=== PATIENT | male | born 1975 | race Caucasian/White ===

== ENCOUNTER 2018-07-05 01:13 | Emergency (ER) | payer OTHER ==
[2018-07-05 01:38] VITALS: RESP 18
--- NOTE | 2018-07-05 02:45 | ED PDOC ---
HPI: Dental Pain/Injury Time Seen by Provider: 07/05/18 01:51 Chief Complaint (Nursing): Dental Pain Chief Complaint (Provider): Dental pain History Per: Patient History/Exam Limitations: no limitations Onset/Duration Of Symptoms: Days (x3) Current Symptoms Are (Timing): Still Present Additional Complaint(s): Quentin Love is a 42 year old male, with a past medical history of ADHD and HIV, who presents to the emergency department for evaluation of a right lower toothache radiating into the jaw for the last x3 days. Patient states pain worsened today and interfered with his ability to sleep, prompting ED visit. Patient notes he has an appointment tomorrow to get the affected molar extracted. He reports no relief with taking a tab of Percocet at 20:30 and a dditional tab at 23:30, patient also took Tramadol 50mg tab at 17:30. He denies any other medical complaints. Patient notes he was told the tooth is pressing on the nerve. Patient has been compliant with his HIV regimen and states his levels are undetectable. PMD: None provided. Past Medical History Reviewed: Historical Data, Nursing Documentation, Vital Signs Vital Signs: Last Vital Signs Temp 98.8 F 07/05/18 01:34 Pulse 100 H 07/05/18 01:34 Resp 18 07/05/18 01:34 BP 136/75 07/05/18 01:34 Pulse Ox 98 07/05/18 01:34 - Medical History PMH: HIV (on meds) Other PMH: ADHD - Surgical History Surgical History: No Surg Hx - Family History Family History: States: Unknown Family Hx - Social History Current smoker - smoking cessation education provided: Yes (heavy smoker >10 cigarettes daily) Alcohol: None Drugs: Denies - Allergies Allergies/Adverse Reactions: Allergies Allergy/AdvReac Type Severity Reaction Status Date / Time No Known Allergies Allergy Verified 07/05/18 01:33 Review of Systems ROS Statement: Except As Marked, All Systems Reviewed And Found Negative ENT: Positive for: Mouth Pain (right lower toothache and jaw pain) Physical Exam - Reviewed Nursing Documentation Reviewed: Yes Vital Signs Reviewed: Yes - Physical Exam Comments: GENERAL APPEARANCE: Patient is awake, alert, oriented x 3, in no acute distress. Resting comfortably. SKIN: Warm, dry; (-) cyanosis. LUNGS: clear to auscultation bilaterally (-) rales (-) rhonchi (-) wheezing. Speaking in full sentences, respirations even and nonlabored. HEART: (-) irregularity ENMT: Full ROM of mandible. (-) sinus swelling or tenderness. (-) tooth t enderness to percussion. (-) gingival swelling or fluctuance. Pharynx: clear, uvula midline (-) tongue elevation, (-) exudate. Airway patent: (-) stridor. (- ) Submandibular or submental neck swelling (-) pseudomembranes NECK: Supple, FROM (-) tenderness, (-) crepitus. - ECG O2 Sat by Pulse Oximetry: 98 (RA) Pulse Ox Interpretation: Normal Medical Decision Making Medical Decision Making: Time: 01:50 Initial Impression: Dental and jaw pain Initial Plan: --Toradol 30 mg IM --Reevaluation 254 On re-evaluation, patient reports significant improvement of pain and is requesting discharge home at this time. On exam, patient remains AAOx3, in no acute distress. Lungs clear to auscultatio n, cardiac RRR, abdomen soft, non-tender, repeat neuro exam shows no focal findings. Vitals stable. Lab/Diagnostic results d/w the patient in great detail. Diagnosis of toothache d/w the patient. Based on history, exam and diagnostic results, plan will be for outpatient follow up with dental as scheduled. Patient instructed to follow-up with pmd / referral provided / the clinic in 1- 2 days without fail. Return to the emergency room at any time for any new or worsening symptoms. Patient states he fully agrees with and understands discharge instructions. States that he agrees with the plan and disposition. Verbalized and repeated discharge instructions and plan. I have given the patient opportunity to ask any additional questions. Scribe Attestation: Documented by Emir Hernandez, acting as a scribe for Radha Leblanc PA-C. Provider Scribe Attestation: All medical record entries made by the Scribe were at my direction and personally dictated by me. I have reviewed the chart and agree that the record accurately reflects my personal performance of the history, physical exam, medical decision making, and the department course for this patient. I have also personally directed, reviewed, and agree with the discharge instructions and disposition. Disposition - Clinical Impression Clinical Impression: Toothache, Jaw pain - Patient ED Disposition Is Patient to be Admitted: No Counseled Patient/Family Regarding: Studies Performed, Diagnosis, Need For Followup - Disposition Referrals: [facility] [Outside] Disposition: Routine/Home Disposition Time: 02:55 Condition: STABLE Additional Instructions: FOLLOW UP WITH DENTIST TOMORROW SCHEDULED. CONTINUE PREVIOUSLY PRESCRIBED PAIN MEDICATIONS. The emergency medical care you received today was directed at your acute symptoms. If you were prescribed any medication, please fill it and take as directed. It may take several days for your symptoms to resolve. Return to the Emergency Department if your symptoms worsen, do not improve, or if you have any other problems. Please contact your doctor in 2 days for re-evaluation and follow up / or call one of the physicians/clinics you have been referred to that are listed on the Patient Visit Information form that is included in your discharge packet. Bring any paperwork you were given at discharge with you along with any medications you are taking to your follow up visit. Our treatment cannot replace ongoing medical care by a primary care provider (PCP) outside of the emergency department. Instructions: Dental Pain Forms: [employer] (Kazakh) Print Language: CENTRAL AFRICAN - POA Present On Arrival: None
[2018-07-05 03:17] VITALS: BP 130/71; PULSE 70; TEMP 98.2
[2018-07-05 04:11] VITALS: O2SAT 98
== END 2018-07-05 03:04 | disposition home or self-care (01) ==
LOC: H.ER 01:13
DX: K08.89 Other specified disorders of teeth and supporting structures (principal)
CPT/HCPCS: 96372; 99283; J1885